=== PATIENT | male | born 1995 | race Two or more races ===

== ENCOUNTER 2018-11-09 23:28 | Emergency (ER) | payer OTHER ==
[~2018-11-09] VITALS: Ht 175.3 cm; Wt 55.3 kg
--- NOTE | 2018-11-09 23:45 | NUR ---
Pt. ambulated into ED w/ c/o 7/10 L flank pain since this morning and nausea since last night, reports having discomfort when urinating and reports a hx of hydronephrosis, pt. is accompanied by gf,
--- NOTE | 2018-11-09 23:47 | NUR ---
at bedside for MSE
[2018-11-10] MEDS ORDERED: TAMSULOSIN HCL 0.4 MG CAP.SR.24H PO ONE
[2018-11-10] MEDS ORDERED: ONDANSETRON 4 MG/2 ML VIAL IV ONE
[2018-11-10] MEDS ORDERED: KETOROLAC TROMETHAMINE 15 MG INJ IV ONE
[2018-11-10] MEDS ORDERED: IV NORMAL SALINE 1000 ML BAG IV ONE
[2018-11-10] MEDS ORDERED: HYDROMORPHONE 1 MG/1 ML DISP.SYRIN IV ONE
--- NOTE | 2018-11-10 00:01 | NUR ---
Pt. up to use restroom - ambulated w/ steady gait, urine specimen collected and sent to lab - no blood clots noted in urine,
[2018-11-10 00:04] LABS: BASOPHILS % (AUTO) 0.3 % (0.0-2.0); EOSINOPHILS # (AUTO) 0.1 K/uL (0.0-0.7); EOSINOPHILS % (AUTO) 0.6 % (0.0-7.0); HEMATOCRIT 40.4 % (36.7-47.1); HEMOGLOBIN 13.7 g/dL (12.5-16.3); LYMPHOCYTES # (AUTO) 2.5 K/uL (20.0-40.0); LYMPHOCYTES % (AUTO) 18.1 % (20.5-51.5); MEAN CORPUSCULAR HEMOGLOBIN 29.8 uug (23.8-33.4); MEAN CORPUSCULAR HGB CONC 34 g/dL (32.5-36.3); MEAN CORPUSCULAR VOLUME 88.2 fL (73.0-96.2); MONOCYTES % (AUTO) 7.4 % (0.0-11.0); NEUTROPHILS # (AUTO) 10.2 K/uL (1.8-8.9); NEUTROPHILS % (AUTO) 73.6 % (38.5-71.5); PLATELET COUNT (AUTO) 323 K/uL (152-348); RED BLOOD CELL COUNT(AUTO) 4.58 MIL/uL (4.06-5.63); WHITE BLOOD COUNT (AUTO) 13.8 K/uL (3.6-10.2)
[2018-11-10] MEDS ORDERED: KETOROLAC TROMETHAMINE 30 MG INJ ONE (00:05)
[2018-11-10 00:06] LABS: *BILIRUBIN,URIN NEGATIVE (NEGATIVE); *CLARITY,URINE CLEAR (CLEAR); *COLOR,URINE YELLOW (YELLOW); *KETONES,URINE 2+ (NEGATIVE); *UROBILINOGEN,URINE 0.2 E.U./dl (NORMAL); LEUKOCYTE ESTERASE ,URINE NEGATIVE (NEGATIVE); NITRITE, URINE NEGATIVE (NEGATIVE); UGLUCOSE NEGATIVE (NEGATIVE)
[2018-11-10] MEDS ORDERED: HYDROMORPHONE 1 MG/1 ML DISP.SYRIN ONE (00:06)
[2018-11-10] MEDS ORDERED: ONDANSETRON 4 MG/2 ML VIAL ONE (00:06)
[2018-11-10] MEDS ORDERED: TAMSULOSIN HCL 0.4 MG CAP.SR.24H ONE (00:06)
[2018-11-10 00:08] LABS: *BLOOD, URINE TRACE (NEGATIVE)
--- NOTE | 2018-11-10 00:10 | NUR ---
US tech. at bedside for US
--- NOTE | 2018-11-10 00:10 | NUR ---
Radiology called to contact [facility].,
[2018-11-10 00:12] LABS: BACTERIA,URINE NONE SEEN /HPF (NONE SEEN); SQUAMOUS EPITHELIAL CELL,UR FEW /HPF (NONE SEEN); WBC,URINE 0-3 /HPF (0-3)
[2018-11-10 00:15] LABS: POTASSIUM 3.5 mmol/L (3.5-5.1)
[2018-11-10 00:21] LABS: BILIRUBIN,DIRECT 0.1 mg/dL (0.0-0.2); BILIRUBIN,TOTAL 0.4 mg/dL (0.2-1.0); TOTAL PROTEIN, SERUM 8.2 g/dL (6.4-8.2)
--- NOTE | 2018-11-10 01:50 | NUR ---
Called [facility] for results of US - awaiting call back
--- NOTE | 2018-11-10 02:06 | NUR ---
Patient discharged to home in stable conditon. Written and verbal after care instructions given. Patient verbalizes understanding of instructions. Pt. d/c w/ prescription per MD orders, all belongings w/ pt., ID/IV removed, d/c papers signed, ambulated off unit w/ steady gait accompanied by gf, left in private vehicle, NAD
== END 2018-11-10 02:09 | disposition home or self-care (01) ==
LOC: ER 23:28
DX: Q61.3 Polycystic kidney, unspecified (principal); G89.29 Other chronic pain; R10.9 Unspecified abdominal pain; F12.10 Cannabis abuse, uncomplicated
CPT/HCPCS: 36415; 76770; 80048; 80076; 81001; 83690; 85025; 96374; 96375; 99283; J1170; J1885; J2405; A4663; J7030

== ENCOUNTER 2019-02-07 15:02 | Emergency (ER) | payer OTHER ==
[~2019-02-07] VITALS: Ht 172.7 cm; Wt 56.7 kg
[2019-02-07 15:26] LABS: *BILIRUBIN,URIN NEGATIVE (NEGATIVE); *BLOOD, URINE NEGATIVE (NEGATIVE); *CLARITY,URINE CLEAR (CLEAR); *COLOR,URINE YELLOW (YELLOW); *KETONES,URINE NEGATIVE (NEGATIVE); *UROBILINOGEN,URINE 0.2 E.U./dl (NORMAL); LEUKOCYTE ESTERASE ,URINE NEGATIVE (NEGATIVE); NITRITE, URINE NEGATIVE (NEGATIVE); PH,URINE 5.5 (5.0-8.0); UGLUCOSE NEGATIVE (NEGATIVE)
[2019-02-07 15:29] LABS: BASOPHILS % (AUTO) 0.5 % (0.0-2.0); EOSINOPHILS # (AUTO) 0.5 K/uL (0.0-0.7); EOSINOPHILS % (AUTO) 6.9 % (0.0-7.0); HEMATOCRIT 40.6 % (36.7-47.1); HEMOGLOBIN 13.6 g/dL (12.5-16.3); LYMPHOCYTES # (AUTO) 2.2 K/uL (20.0-40.0); MEAN CORPUSCULAR HEMOGLOBIN 30.2 uug (23.8-33.4); MEAN CORPUSCULAR HGB CONC 34 g/dL (32.5-36.3); MEAN CORPUSCULAR VOLUME 89.7 fL (73.0-96.2); MONOCYTES # (AUTO) 0.7 K/uL (2.0-10.0); MONOCYTES % (AUTO) 9.6 % (0.0-11.0); PLATELET COUNT (AUTO) 267 K/uL (152-348); RED BLOOD CELL COUNT(AUTO) 4.52 MIL/uL (4.06-5.63); WHITE BLOOD COUNT (AUTO) 7.4 K/uL (3.6-10.2)
[2019-02-07 15:37] LABS: CREATININE 1.2 mg/dL (0.6-1.3); POTASSIUM 3.8 mmol/L (3.5-5.1)
[2019-02-07 15:43] LABS: BILIRUBIN,DIRECT 0.1 mg/dL (0.0-0.2); BILIRUBIN,TOTAL 0.3 mg/dL (0.2-1.0); TOTAL PROTEIN, SERUM 7.6 g/dL (6.4-8.2)
--- NOTE | 2019-02-07 16:13 | NUR ---
US at bedside.
[2019-02-07 17:31] VITALS: BP 121/73
== END 2019-02-07 17:31 | disposition home or self-care (01) ==
LOC: ER 15:02
DX: R10.9 Unspecified abdominal pain (principal); F12.10 Cannabis abuse, uncomplicated
CPT/HCPCS: 36415; 76770; 83690; 85025; A4663

== ENCOUNTER 2021-04-20 23:02 | Emergency (ER) | payer OTHER ==
[~2021-04-20] VITALS: Ht 175.3 cm; Wt 65.8 kg
[2021-04-20 23:30] LABS: HEMATOCRIT 40.2 % (36.7-47.1); MEAN CORPUSCULAR HEMOGLOBIN 31.5 uug (23.8-33.4); MEAN CORPUSCULAR VOLUME 92.6 fL (73.0-96.2); PLATELET COUNT (AUTO) 275 K/uL (152-348)
[2021-04-20] MEDS ORDERED: IV NORMAL SALINE 1000 ML BAG IV ONE (23:30)
[2021-04-20] MEDS ORDERED: ACETAMINOPHEN ES 500 MG TABLET PO ONE (23:30)
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
[2021-04-20 23:46] LABS: CREATININE 1.2 mg/dL (0.6-1.3); POTASSIUM 3.9 mmol/L (3.5-5.1)
[2021-04-20] MEDS ORDERED: ACETAMINOPHEN ES 500 MG TABLET ONE (23:51)
[2021-04-21] MEDS ORDERED: SWABABLE VALVE TRANSFER SET EA MC ONE (00:11)
[2021-04-21] MEDS ORDERED: IOHEXOL 300MG/ML 100 ML INFUS..BTL ONE (00:11)
[2021-04-21] MEDS ORDERED: IV NORMAL SALINE 250 ML IV ONE (00:11)
[2021-04-21] MEDS ORDERED: HYDR-4209 PO (00:58)
[2021-04-21] MEDS ORDERED: IBUP-1955 PO (00:58)
--- NOTE | 2021-04-21 01:10 | NUR ---
IV removed. Catheter intact and site benign. Pressure and 4x4 gauze applied to site. No bleeding noted.
--- NOTE | 2021-04-21 01:20 | NUR ---
Patient discharged to home in stable condition. Written and verbal after care instructions given. Patient verbalizes understanding of instructions. Stressed follow up or return to ER for worsening s/s.
[2021-04-21 02:14] VITALS: BP 112/65
== END 2021-04-21 01:30 | disposition home or self-care (01) ==
LOC: ER 23:03
DX: S16.1XXA Strain of muscle, fascia and tendon at neck level, initial encounter (principal); S00.83XA Contusion of other part of head, initial encounter; S10.93XA Contusion of unspecified part of neck, initial encounter; S09.90XA Unspecified injury of head, initial encounter; V43.62XA Car passenger injured in collision with other type car in traffic accident, initial encounter; Y92.414 Local residential or business street as the place of occurrence of the external cause; Z84.1 Family history of disorders of kidney and ureter
CPT/HCPCS: 36415; 70496; 70498; 80048; 85025; 96360; 99285; Q9967; A4663; A9150; J7030; J7050

== ENCOUNTER 2024-01-26 21:59 | Emergency (ER) | payer OTHER ==
[~2024-01-26] VITALS: Ht 175.3 cm; Wt 74.8 kg
[~2024-01-26 21:59] MED LIST: HYDR-4209 PO; IBUP-1955 PO
[2024-01-26] MEDS ORDERED: SULFAMETH/TRIMETH 800/160 MG TABLET ONE (22:41)
[2024-01-26] MEDS ORDERED: SULF1TAB48 PO (22:41)
[2024-01-26] MEDS: SULFAMETH/TRIMETH 800/160 MG TABLET PO ONE (22:44)
[2024-01-26 22:45] VITALS: BP 114/64; O2SAT 98
== END 2024-01-26 22:46 | disposition home or self-care (01) ==
LOC: ER 22:10
DX: A49.02 Methicillin resistant Staphylococcus aureus infection, unspecified site (principal); F32.A Depression, unspecified; Z79.899 Other long term (current) drug therapy
CPT/HCPCS: A4606; A4663

== ENCOUNTER 2024-01-29 19:39 | Emergency (ER) | payer OTHER ==
[~2024-01-29] VITALS: Ht 175.3 cm; Wt 74.8 kg
[~2024-01-29 19:39] MED LIST changes: +SULF1TAB48 PO
[2024-01-29] MEDS ORDERED: SULF1TAB48 PO (20:59)
[2024-01-29 21:06] VITALS: BP 120/69; TEMP 98.6; O2SAT 98
== END 2024-01-29 21:06 | disposition home or self-care (01) ==
LOC: ER 19:42
DX: L02.416 Cutaneous abscess of left lower limb (principal); F31.9 Bipolar disorder, unspecified; Z98.890 Other specified postprocedural states; Z79.899 Other long term (current) drug therapy
CPT/HCPCS: A4606; A4663